=== PATIENT | female | born 1935 | race Caucasian/White ===

== ENCOUNTER 2019-12-30 13:05 | Inpatient (IN) | payer OTHER, BC ==
--- NOTE | 2019-12-30 14:10 | PDOC ---
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 Reecent CT showed resolved metastasis. Last Chemo 2 weeks prior. HPI: Mid lower back/sacral pain started 3 days ago. Came in today bc it became worse last night. Patient states usually able to walk with walker for past 3 days she cannot walk because she is in extreme pain. States this has never happened to her in the past where she could not walk. Dr. Sams her PCP recommended she come in today bc back pain is getting worse. D escribed as sharp. worse when she moves her legs or tries to get out of bed. Rates it 10/10. Doesn't radiate, localized to lower back/sacral area. Took 3 advil last night states it didn't help with the pain. Denies any recent falls or trauma. Denies urinary or bowel incontinence. Denies fevers, nausea, or vomiting. PCP: Dr. Jayashree Klein PSH: Stent, Patrial bowel resection Social Hx: Denies toxic habits Allergies: Sulfa Past History - Medical History Allergies/Adverse Reactions: Allergies Allergy/AdvReac Type Severity Reaction Status Date / Time Sulfa (Sulfonamide Allergy Verified 12/30/19 13:23 Antibiotics) Home Medications: Ambulatory Orders Aspirin 81 mg PO DAILY 12/30/19 Atorvastatin Ca [Lipitor] 40 mg PO HS 12/30/19 Calcium Carbonate 500 mg PO BID 12/30/19 Cholecalciferol (Vitamin D3) [Vitamin D3] 2,000 unit PO DAILY 12/30/19 Folic Acid 1 mg PO DAILY 12/30/19 Hydrochlorothiazide [Hctz -] 25 mg PO DAILY 12/30/19 Losartan Potassium 25 mg PO DAILY 12/30/19 Metoprolol Succinate 25 mg PO DAILY 12/30/19 Pantoprazole Sodium 40 mg PO DAILY 12/30/19 Cancer: Yes (breast,liver,intestines) Cardiac Disorders: Yes (a fib and watch man) COPD: No GI Disorders: Yes HTN: Yes Hypercholesterolemia: Yes - Surgical History Abdominal Surgery: Yes (intestinal, liver.) - Reproductive History Is Patient Now?: No - Psycho-Social/Smoking History Smoking History: Never smoked - Substance Abuse Hx (Audit-C & DAST Scrn) How often the patient has a drink containing alcohol: Never Score: In Men: 4 or > Positive; In Women: 3 or > Positive: 0 Screen Result (Pos requires Nsg. Audit-10AR): Negative In the last yr the pt used illegal drug/Rx for NonMed reason: No Score: Yes response is considered Positive: 0 Screen Result (Positive result requires Nsg. DAST-10): Negative Review of Systems - Review of Systems Able to Perform ROS?: Yes Comments:: CONSTITUTIONAL: Absent: fever, no chills, no fatigue EYES: Absent: visual changes ENT: Absent: ear pain, no sore throat CARDIOVASCULAR: Absent: chest pain, no palpitations RESPIRATORY: Absent: cough, no SOB GI: Absent: abdominal pain, no nausea, no vomiting, no constipation, no diarrhea GENITOURINARY: Present: Frequency Absent: dysuria, no hematuria MUSKULOSKELETAL: Present: Back pain Absent: no arthralgia, no myalgia SKIN: Absent: rash NEURO: Absent: headache *Physical Exam - Vital Signs Last Vital Signs Temp Pulse Resp BP Pulse Ox 98.2 F 100 H 16 120/81 99 12/30/19 13:05 12/30/19 13:05 12/30/19 13:05 12/30/19 13:05 12/30/19 13:05 - Physical Exam GENERAL: Well-appearing, well-nourished. Moderate distress. HEENT: Normocephalic, atraumatic. PERRL, EOM intact. CARDIOVASCULAR: Irregular rhythm and tachycardic rate. PULMONARY: No evidence of respiratory distress. Lungs clear to auscultation bilaterally. No wheezing, rales or rhonchi. ABDOMEN: Soft, non-distended, non-tender. SADDLE REGION: There is complete sensation in the saddle region without any saddle anesthesia RECTAL EXAM: There is normal and strong rectal tone EXTREMITIES: Normal ROM in all four extremities. No gross deformities. Both great toes have full strength and normal ROM on big toe extension. SKIN: Warm, dry. No rash NEUROLOGICAL: Alert, awake, appropriate. Cranial nerves 2-12 intact. No deficits to light touch in face, upper extremities and lower extremities. No motor deficits in the in face and upper extremities. There is bilateral 3/5 lower extremity weakness. There is significant lower back lumbar spinal tenderness. Normal speech. Toes are down-going bilaterally. PSYCHIATRIC: Cooperative. Good eye contact. Appropriate mood and affect. 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 Recent CT showed resolved metastasis. Last Chemo 2 weeks prior. HPI: Mid lower back/sacral pain started 3 days ago. Came in today bc it became worse last night. Patient states usually able to walk with walker for past 3 days she cannot walk because she is in extreme pain. States this has never happened to her in the past where she could not walk. Dr. Sams her PCP recommended she come in today bc back pain is getting worse. Described as sharp. worse when she moves her legs or tries to get out of bed. Rates it 10/10. Doesn't radiate, localized to lower back/sacral area. Took 3 advil last night states it didn't help with the pain. Vital Signs Temp Pulse Resp BP Pulse Ox 98.2 F 100 H 16 120/81 99 12/30/19 13:05 12/30/19 13:05 12/30/19 13:05 12/30/19 13:05 12/30/19 13:05 DDx IBNLT: Recurrent metastases, cauda equina vs conus medularis vs cord compression, electrolyte/metabolic disturbance, TAHIRA Plan: Labs, urine, CT, analgesia, re-assess EKG: Afib w RVR at ventricular rate of 119, narrow complexes with qrs 78, normal axis, no hypertrophy, no ST elevations or depressions, QTc 450 Labs: Mild hyperkalemia, TAHIRA - Patient states she has never before had kidney problems. Reports her kidney labs always being normal Urine: Greater than 10,000 bacteria - Treating UTi with ceftriaxone Lumbar CT: There is a broad-based posterior disc herniation at the L3-4 level producing a moderately severe central spinal canal stenosis with encroachment on the right and left lateral recesses, possibly compromising the L4 nerve roots. Dispo: Signing out patient to Dr. Brining to discuss case with Neuro-surgery, potential MRI, future ED care and final disposition Discharge - Discharge Information Problems reviewed: Yes Clinical Impression/Diagnosis: TAHIRA (acute kidney injury), Intractable pain, Central stenosis of spinal canal UTI (urinary tract infection) Qualifiers: Urinary tract infection type: acute cystitis Hematuria presence: without hematuria Qualified Code(s): N30.00 - Acute cystitis without hematuria Condition: Stable - Follow up/Referral - Patient Discharge Instructions - Post Discharge Activity
[2019-12-30] MEDS ORDERED: SODIUM CHLORIDE 1,000 ML IV STA (14:41)
[2019-12-30] MEDS ORDERED: morphine CARPU-JECT 4 MG/1 ML DISP.SYRIN IVPUSH ONE (15:10)
[2019-12-30 15:21] LABS: EOS % 2.5 % (0-4.5); HEMOGLOBIN 11.8 GM/dL (10.7-15.3); LYMPH % 9.1 % (8-40); MCH 33.1 pg (25.7-33.7); MCHC 32.8 g/dl (32.0-36.0); MEAN PLT VOLUME 9.1 fl (7.5-11.1); MONO % 8.9 % (3.8-10.2); NEUT % 78.5 % (42.8-82.8); PLATELET COUNT 322 K/MM3 (134-434); RBC 3.56 M/mm3 (3.60-5.2); RDW 16.1 % (11.6-15.6); WHITE BLOOD COUNT 9.9 K/mm3 (4.0-10.0)
[2019-12-30 15:27] LABS: INR 1.08 (0.83-1.09); PROTHROMBIN TIME (PATIENT) 12.7 SEC (9.7-13.0)
[2019-12-30] MEDS ORDERED: morphine SULFATE 4 MG/ML VIAL ONE (15:28)
[2019-12-30 15:53] LABS: ALBUMIN 3.3 g/dl (3.4-5.0); ALK PHOS 201 U/L (45-117); ANION GAP 7 MMOL/L (8-16); BILIRUBIN,TOTAL 0.9 mg/dL (0.2-1); BLOOD UREA NITROGEN 55.1 mg/dL (7-18); CALCIUM 9.3 mg/dL (8.5-10.1); CHLORIDE 112 mmol/L (98-107); CO2 25 mmol/L (21-32); CREATININE 1.8 mg/dL (0.55-1.3); GLUCOSE,RANDOM 98 mg/dL (74-106); POTASSIUM 5.6 mmol/L (3.5-5.1); SGOT/AST 18 U/L (15-37); SGPT/ALT 16 U/L (13-61); SODIUM 143 mmol/L (136-145); TOT PROT 6.9 g/dl (6.4-8.2)
--- NOTE | 2019-12-30 16:01 | PDOC ---
Documentation entered by Mckenna Caballero SCRIBE, acting as scribe for Nae Bo MD. Nae Bo MD: This documentation has been prepared by the Ada dunbar Brenda, SCRIBE, under my direction and personally reviewed by me in its entirety. I confirm that the documentation accurately reflects all work, treatment, procedures, and medical decision making performed by me. Attending Attestation - Resident Resident Name: Olaf Broussard - ED Attending Attestation I have performed the following: I have examined & evaluated the patient, The case was reviewed & discussed with the resident, I agree w/resident's findings & plan, Exceptions are as noted - HPI HPI: 12/30/19 14:35 The patient is an 84 year old female with a significnat PMH of colon carcinoma with metastasis to the liver, HTN and AFIB who presents to the ED for evaluation of progressively worsening mid lower back pain for 3 days. Patient was referred to the ED by her PCP Dr. Sams for worsening back pain. Patient notes that the pain is sharp, 10/10 and is aggravated by leg movement but does not radiate. States she took 3 Advil last night to no relief. Denies any recent falls or trauma. The patient denies chest pain, shortness of breath, headache and dizziness. Denies fever, chills, nausea, vomiting, diarrhea and constipation. Denies dysuria, frequency, urgency and hematuria. PCP: Dr. Jayashree Klein - Physicial Exam PE: 12/30/19 15:35 Agree with resident exam. patient is alert and appears mildly uncomfortable. 5/5 strength bilateral great toe extension. Intact bilateral lower extremity light touch sensation. - Medical Decision Making 12/30/19 15:57 PT presents to the ED with severe atraumatic back pain. History of malignancy, recent negative Ct abdomen pelvis. Denies neurologic symptoms, bowel or bladder complaints. Low suspcion for cord compression. Differential includes mets to the spine, compression fx, muscular pain. Will check labs and ct spine, admit to medicine for continued monitoring. Discharge - Discharge Information Problems reviewed: Yes Clinical Impression/Diagnosis: TAHIRA (acute kidney injury), Intractable pain, Central stenosis of spinal canal UTI (urinary tract infection) Qualifiers: Urinary tract infection type: acute cystitis Hematuria presence: without hematuria Qualified Code(s): N30.00 - Acute cystitis without hematuria Condition: Stable - Follow up/Referral - Patient Discharge Instructions - Post Discharge Activity
[2019-12-30 16:52] LABS: EPI CELLS 3 /uL (0-25.1); HYALINE CASTS 2 /uL (0-3.1); URINE APPEARANCE CLOUDY; URINE BILIRUBIN NEGATIVE (NEGATIVE); URINE COLOR YELLOW; URINE GLUCOSE (UA) NEGATIVE (NEGATIVE); URINE KETONE NEGATIVE (NEGATIVE); URINE LEUK ESTERASE 1+ (NEGATIVE); URINE NITRITE NEGATIVE (NEGATIVE); URINE PROTEIN TRACE (NEGATIVE); URINE UROBILINOGEN 0.2 mg/dL (0.2-1.0); URINE WBC 192 /uL (0-25.8)
[2019-12-30] MEDS ORDERED: CEFTRIAXONE 1,000 MG in DEXTROSE 5%-WATER - 50 ML IVPB ONE (17:51)
[2019-12-30] MEDS ORDERED: CEFTRIAXONE 1 GM/50 ML BAG ONE (17:53)
[2019-12-30 18:04] LABS: URINE RBC 77.4 /uL (0-23.9)
--- NOTE | 2019-12-30 19:46 | PDOC ---
*Physical Exam - Vital Signs Last Vital Signs Temp Pulse Resp BP Pulse Ox 98.2 F 100 H 16 120/81 99 12/30/19 13:05 12/30/19 13:05 12/30/19 13:05 12/30/19 13:05 12/30/19 13:05 ED Treatment Course - LABORATORY CBC & Chemistry Diagram: 01/03/20 07:15 01/03/20 07:15 - ADDITIONAL ORDERS Additional order review: Laboratory Results 12/30/19 12/30/19 12/30/19 16:47 15:12 15:12 PT with INR 12.70 INR 1.08 PTT (Actin FS) 28.0 Sodium Potassium Chloride Carbon Dioxide Anion Gap BUN Creatinine Est GFR (CKD-EPI)AfAm Est GFR (CKD-EPI)NonAf Random Glucose Calcium Total Bilirubin AST ALT Alkaline Phosphatase Troponin I C-Reactive Protein 3.9 H Total Protein Albumin Lipase 54 L Urine Color Yellow Urine Appearance Cloudy Urine pH 5.0 Ur Specific [place] 1.011 Urine Protein Trace Urine Glucose (UA) Negative Urine Ketones Negative Urine Blood Trace Urine Nitrite Negative Urine Bilirubin Negative Urine Urobilinogen 0.2 Ur Leukocyte Esterase 1+ H Urine WBC (Auto) 192 Urine RBC (Auto) 77.4 Urine Casts (Auto) 2 U Epithel Cells (Auto) 3 Urine Crystals (Auto) None Urine Bacteria (Auto) >10,000 12/30/19 15:12 PT with INR INR PTT (Actin FS) Sodium 143 Potassium 5.6 H Chloride 112 H Carbon Dioxide 25 Anion Gap 7 L BUN 55.1 H Creatinine 1.8 H Est GFR (CKD-EPI)AfAm 29.03 Est GFR (CKD-EPI)NonAf 25.04 Random Glucose 98 Calcium 9.3 Total Bilirubin 0.9 AST 18 ALT 16 Alkaline Phosphatase 201 H Troponin I < 0.02 C-Reactive Protein Total Protein 6.9 Albumin 3.3 L Lipase Urine Color Urine Appearance Urine pH Ur Specific [place] Urine Protein Urine Glucose (UA) Urine Ketones Urine Blood Urine Nitrite Urine Bilirubin Urine Urobilinogen Ur Leukocyte Esterase Urine WBC (Auto) Urine RBC (Auto) Urine Casts (Auto) U Epithel Cells (Auto) Urine Crystals (Auto) Urine Bacteria (Auto) 12/30/19 15:12 RBC 3.56 L MCV 101.0 H MCHC 32.8 RDW 16.1 H MPV 9.1 Neutrophils % 78.5 Lymphocytes % 9.1 Monocytes % 8.9 Eosinophils % 2.5 Basophils % 1.0 - RADIOLOGY Radiology Studies Ordered: Category Date Time Status LUMBAR SPINE MRI W&W/O CONTR [MRI] Stat MRI 12/30/19 19:38 Ordered - Medications Given in the ED: ED Medications Discontinued Medications Generic Name Dose Route Start Last Admin Trade Name Jesús PRN Reason Stop Dose Admin Sodium Chloride 1,000 mls @ 1,000 mls/hr 12/30/19 14:41 12/30/19 15:27 Normal Saline - IV 12/30/19 15:40 1,000 mls/hr ASDIR STA Administration Ceftriaxone Sodium 1,000 mg/ 50 mls @ 100 mls/hr 12/30/19 17:51 12/30/19 18:00 Dextrose IVPB 12/30/19 18:20 100 mls/hr ONCE ONE Administration Morphine Sulfate 4 mg 12/30/19 15:10 12/30/19 15:27 Morphine Injection - IVPUSH 12/30/19 15:11 4 mg ONCE ONE Administration Medical Decision Making - Medical Decision Making 12/30/19 19:41 Received sign out. 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 Recent CT showed resolved metastasis. Last Chemo 2 weeks prior. HPI: Mid lower back/sacral pain started 3 days ago. Came in today bc it became worse last night. Patient states usually able to walk with walker for past 3 days she cannot walk because she is in extreme pain. States this has never happened to her in the past where she could not walk. Dr. Sams her PCP recommended she come in today back pain is getting worse. Described as sharp. worse when she moves her legs or tries to get out of bed. Rates it 10/10. Doesn't radiate, localized to lower back/sacral area. Took 3 advil last night states it didn't help with the pain. EKG: Afib w RVR at ventricular rate of 119, narrow complexes with qrs 78, normal axis, no hypertrophy, no ST elevations or depressions, QTc 450 Labs: Mild hyperkalemia, TAHIRA - Patient states she has never before had kidney problems. Reports her kidney labs always being normal Urine: Greater than 10,000 bacteria - Treating UTI with ceftriaxone Lumbar CT: There is a broad-based posterior disc herniation at the L3-4 level producing a moderately severe central spinal canal stenosis with encroachment on the right and left lateral recesses, possibly compromising the L4 nerve roots. Upon reassessment, pt is not in pain when still but excruciating pain when tries to sit up. 4+/5 strength in RLE, 4/5 strength in LLE, weakness appears 2/2 pain. Able to lift RLE off bed for 3 seconds, unable to lift LLE off bed. SILT throughout. Spoke with NSGY Dr Caal - recommends steroids, muscle relaxant, gabapentin, pain management, and lumbar spine MRI w/and w/o contrast -Gabapentin -Flexeril -Decadron Admit med/surg Consulted [employer] representative. Received specifications to get MRI with pt's watchman. Passed on instructions verbally and in writing to prosthetic technician who expressed understanding. -MRI Discharge - Discharge Information Problems reviewed: Yes Clinical Impression/Diagnosis: TAHIRA (acute kidney injury), Intractable pain, Central stenosis of spinal canal UTI (urinary tract infection) Qualifiers: Urinary tract infection type: acute cystitis Hematuria presence: without hematuria Qualified Code(s): N30.00 - Acute cystitis without hematuria Condition: Stable - Admission Yes - Follow up/Referral - Patient Discharge Instructions - Post Discharge Activity
[2019-12-30] MEDS ORDERED: GABAPENTIN 100 MG CAPSULE PO ONE (19:49)
[2019-12-30] MEDS ORDERED: METHOCARBAMOL 500 MG TABLET PO ONE (19:50)
--- NOTE | 2019-12-30 20:18 | PN ---
Teaching Attending Note Name of Resident: Peace Pereyra ATTENDING PHYSICIAN STATEMENT I saw and evaluated the patient. I reviewed the resident's note and discussed the case with the resident. I agree with the resident's findings and plan as documented. SUBJECTIVE: Patient is an 84 year old woman with a PMH of CVA, HTN, Afib (Watchman device in place), Breast cancer (lumpectomy 12 years ago) and Colon carcinoma with metastasis to liver (on chemotherapy) who presents to the ER for evaluation of progressively worsening mid lower back pain for 3 days. Patient was referred to the ER by her PCP Dr. Sams for worsening back pain. Patient notes that the pain is sharp, 10/10 and is aggravated by leg movement but does not radiate. States she took 3 Advil last night with no relief. Denies any recent falls or trauma. The patient denies chest pain, shortness of breath, headache and dizziness. Denies fever, chills, nausea, vomiting, diarrhea and constipation. Denies dysuria, frequency, urgency and hematuria. Recent CT showed resolved liver metastasis. Last Chemo 2 weeks prior. Patient states usually able to walk with walker but for past 3 days she cannot walk because she is in extreme pain. States this has never happened to her in the past where she could not walk.Denies alcohol, tobacco or illicit drug use. No sick contacts or recent travels. Family history is CAD/heart disease in mother and brother; brain cancer in daughter. OBJECTIVE: Alert Vital Signs Period Temp Pulse Resp BP Sys/Eubanks Pulse Ox Last 24 Hr 98.2 F 100 16 120/81 99 HEENT: No Jaundice, eye redness or discharge, PERRLA, EOMI. Normocephalic, atraumatic. External ears are normal and hearing is grossly intact. No nasal discharge. Neck: Supple, nontender. No palpable adenopathy or thyromegaly. No JVD Chest: Good effort. Clear to auscultation and percussion. Heart: Irregularly irregular. No S3, rub or murmur Abdomen: Not distended, soft, nontender and no HSM. No rebound or guarding. Normal bowel sounds. Ext: Peripheral pulses intact. No leg edema. Lumbosacral area tenderness. Skin: Warm and dry. No petechiae, rash or ecchymosis. Neuro: Alert. Oriented x3. CN 2-12 grossly intact. Sensation grossly intact in all four extremities; bilateral LE weakness. gait not tested for safety reasons. Plantar reflexes are flexor. Psych: Appropriate mood and affect. Good insight. Abnormal Lab Results 12/30/19 12/30/19 12/30/19 15:12 15:12 15:12 RBC 3.56 L MCV 101.0 H RDW 16.1 H Potassium 5.6 H Chloride 112 H Anion Gap 7 L BUN 55.1 H Creatinine 1.8 H Alkaline Phosphatase 201 H C-Reactive Protein 3.9 H Albumin 3.3 L Lipase 54 L Ur Leukocyte Esterase 12/30/19 16:47 RBC MCV RDW Potassium Chloride Anion Gap BUN Creatinine Alkaline Phosphatase C-Reactive Protein Albumin Lipase Ur Leukocyte Esterase 1+ H Current Medications Generic Name Dose Route Start Last Admin Trade Name Freq PRN Reason Stop Dose Admin Cyclobenzaprine HCl 5 mg 12/31/19 00:35 Flexeril - PO TID PRN BACK PAIN Dexamethasone Sodium Phosphate 4 mg 12/31/19 03:00 12/31/19 02:45 Decadron Injection - IVPUSH 4 mg Q6H-IV TRACY Administration Gabapentin 100 mg 12/31/19 06:00 Neurontin - PO TID TRACY Heparin Sodium (Porcine) 5,000 unit 12/31/19 06:00 Heparin - SQ TID TRACY Sodium Chloride 1,000 mls @ 75 mls/hr 12/31/19 00:30 12/31/19 00:44 Normal Saline - IV 75 mls/hr ASDIR TRACY Administration Ceftriaxone Sodium 1 gm/ 50 mls @ 100 mls/hr 12/31/19 10:00 Dextrose IVPB DAILY TRACY Lidocaine 1 patch 12/31/19 10:00 Lidoderm Patch - TP DAILY [facility] Miscellaneous 1 each 12/31/19 22:00 Lidoderm Patch Removal MC DAILY@2200 TRACY Morphine Sulfate 1 mg 12/31/19 00:19 Morphine Sulfate IVPUSH Q4H PRN PAIN LEVEL 6-10 ASSESSMENT AND PLAN: 1. Intractable low back pain/UTI - Lumbar CT scan without contrast shows "There is a broad-based posterior disc herniation at the L3-4 level producing a moderately severe central spinal canal stenosis with encroachment on the right and left lateral recesses, possibly compromising the L4 nerve roots." Neurosurgery being consulted. Lumbar MRI is pending. ER staff prescribed Neurontin, Robaxin, Dexamethasone, IV Ceftriaxone and IV Morphine for the patient. Will continue Dexamethaxone q 6 hours, Neurontin, Robaxin, Warm soaks and Lidocaine patch. Consult PT. EKG shows Afib at 119/minute and QTc [address]-T wave changes. Initial troponin is negative. Will avoid drugs that may prolong QTc. Viral testing for COVID-19 ordered and patient placed on airborne, droplet and contact isolation. Hyperkalemia may be partly due to TAHIRA and/or type 4 RTA - should improve with IV hydration. Will continue comp rehensive care for all of patients comorbid conditions. 2. Hypoalbuminemia - Possibly due to combined effects of proteinuria, malnutrition and inflammation associated with comorbid conditions. Will ensure adequate dietary protein intake and also consult alumni secretary. 3. TAHIRA Cause unclear. May be partly due to NSAIDS. Will get kidney sonogram, hydrate gently, monitor urine output and consult Nephrology. Avoid nephrotoxic agents such as NSAIDS, aminoglycosides, contrast dyes and certain Alternative medicine products. 4. Hypertension Will restart suitable outpatient antihypertensive drugs when clinically appropriate. Subsequently, will revise regimen to ensure [id number] excellent BP control. Patient counseled on the injurious effects of uncontrolled hypertension. Nonpharmacologic measures to control hypertension like weight loss, salt restriction and exercise stressed. Importance of adherence to treatment regimen and attainment of normotension emphasized. 5. DVT prophylaxis - Heparin 5000u sq tid. 6. Advance directives - Full code.
[2019-12-30] MEDS ORDERED: DEXAMETHASONE SOD PHOSPHATE 10 MG/1 ML VIAL ONE (22:01)
[2019-12-30] MEDS ORDERED: GABAPENTIN 100 MG CAPSULE ONE (22:01)
[2019-12-30] MEDS ORDERED: METHOCARBAMOL 500 MG TABLET ONE (22:01)
[2019-12-30] MEDS: DEXAMETHASONE SOD PHOSPHATE 10 MG/1 ML VIAL IVPUSH ONE ×2 (22:10→22:25)
--- NOTE | 2019-12-30 23:03 | PN ---
Progress Note (short form) - Note Progress Note: NEUROSURGERY Spoke to ED team Chart reviewed CT LS spine and MRI LS spine reviewed H/o colon CA with mets to liver on chemo, Afib, Htn Increasing LBP and leg pain, difficulty walking; reported weakness which improved after pain meds; no reported B/b incontinence PE: AF, VS General- unremarkable CN- intact; Motor- L IP 4- other 4+-5' Sensation- intact LT; DTR- 1+; Back- tender L buttock, + SLR on L at 30 degrees INR 1.08, Cr 1.8, BUN 55.1, UA- 1+ leuk est, WBC 192, culture pending CT LS spine- No acute fx, multilevel spondylosis and facet hypertrophy; Moderate B L3-4 lateral recess stenosis MRI LS spine- no clear pathological lumbar fx; B L3-4 and L4-5 facet hypertrophy and moderate lateral recess stenosis bilaterally; moderate ligamentum hypertrophy; no significant central canal stenosis; ? edema R sacral ala and S2 Lumbar facet hypertrophy and lateral recess stenosis L3-4 > L4-5 but no central stenosis Metastatic colon CA to liver UTI, culture pending, on ceftriaxone Deheydration Neurosurgical intervention not recommended Medication trial including steroids, lidoderm patch, muscle relaxant and gabapentin PT Nuc bone scan to r/o osseous (sacral/ilium) met Pain management for injections if persistent pain Encourage po intake D/w attending Dr Gómez
[2019-12-30 23:17] VITALS: BMI 23.2
--- NOTE | 2019-12-31 00:08 | HP ---
CHIEF COMPLAINT: unbearable lower back pain PCP: Dr. 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 Patient said that on November 25 she went to her doctor to discuss the results of her CT scan, where she was told that her liver mets have resolved. A few days after, she was sitting in her chair and when she tried to get up she noticed sacral pain. Since then, the pain continued to get worse until she was unable to ambulate or even move without screaming. She then decided to call EMS and they brought her in. The pain does not radiate, and the patient does not recall any accident or awkward movements that could have brought on the pain. She denies any associated symptoms including NVD, SOB, CP, fever, chills. She did endorse urinary frequency since the pain started, because she has been unable to wipe herself properly. ER course was notable for: (1) lumbar spine MRI: insufficiency type fracture on R aspect of sacral ala, fracture of 2nd sacral segment, degenerative disc disease of lumbosacral spine, severe degenerative disc disease L3-L4 with herniation without nerve root compromise (2) K 5.6 (3) Cr 1.8 (4) UA: cloudy, 1+ leukocyte esterase, WBC 192, bacteria > [id number] Recent Travel: none recently PAST MEDICAL HISTORY: HTN afib with watchman stroke breast cancer colon cancer PAST SURGICAL HISTORY: appendectomy lumpectomy partial colectomy Social History: Smoking: denies Alcohol: denies Drugs: denies Home: lives in a elderly residency, carries out ADL independently, had Alzheimer and Family History: daughter recently due to a brain tumor father had heart disease brother has CAD Allergies Sulfa (Sulfonamide Antibiotics) Allergy (Verified 12/30/19 13:23) per patient: gets a rash from sulfa drugs HOME MEDICATIONS: Home Medications Medication Instructions Recorded Aspirin 81 mg PO DAILY 12/30/19 Atorvastatin Ca [Lipitor] 40 mg PO HS 12/30/19 Calcium Carbonate 500 mg PO BID 12/30/19 Cholecalciferol (Vitamin D3) 2,000 unit PO DAILY 12/30/19 [Vitamin D3] Folic Acid 1 mg PO DAILY 12/30/19 Hydrochlorothiazide [Hctz -] 25 mg PO DAILY 12/30/19 Losartan Potassium 25 mg PO DAILY 12/30/19 Metoprolol Succinate 25 mg PO DAILY 12/30/19 Pantoprazole Sodium 40 mg PO DAILY 12/30/19 REVIEW OF SYSTEMS As stated above PHYSICAL EXAMINATION Vital Signs - 24 hr 12/30/19 12/30/19 12/30/19 13:05 17:35 22:15 Temperature 98.2 F 98.1 F Pulse Rate 100 H Pulse Rate [ 76 76 Apical] Respiratory 16 18 20 Rate Blood Pressure 120/81 Blood Pressure 128/76 124/68 [Right Arm] O2 Sat by Pulse 99 99 98 Oximetry (%) 12/30/19 12/30/19 23:05 23:13 Temperature 98.5 F Pulse Rate 121 H Pulse Rate [ Apical] Respiratory 18 Rate Blood Pressure 134/81 Blood Pressure [Right Arm] O2 Sat by Pulse 98 95 Oximetry (%) GENERAL: Elderly female, thin body habitus, pleasant, in no acute distress but apparently in pain when she moves HEAD: Normal with no signs of trauma EYES: PERRL, direct and consensual pupillary reflex intact, extraocular movements intact LUNGS: CTAB, no wheezing appreciated HEART: S1 and S2 without murmur, mildly tachicardic on auscultation ABDOMEN: Soft, not distended, active bowel sounds, mild tenderness on deep palpation UPPER EXTREMITIES: peripheral pulses palpable, warm, mildly cachectic LOWER EXTREMITIES: dorsalis pedis pulses easily palpated, legs warm to touch, feet cold to touch, no peripheral edema NEUROLOGICAL: Cranial nerves II-XII grossly intact. Normal speech PSYCHIATRIC: Cooperative, very talkative, very tangential, forgetful, mildly confused. Good eye contact. SKIN: scattered solar lentigines on arms and hands, no other rashes or lesions noted Laboratory Results - last 24 hr 12/30/19 12/30/19 12/30/19 15:12 15:12 15:12 WBC 9.9 RBC 3.56 L Hgb 11.8 Hct 36.0 MCV 101.0 H MCH 33.1 MCHC 32.8 RDW 16.1 H Plt Count 322 MPV 9.1 Absolute Neuts (auto) 7.8 Neutrophils % 78.5 Lymphocytes % 9.1 Monocytes % 8.9 Eosinophils % 2.5 Basophils % 1.0 Nucleated RBC % 0 PT with INR INR PTT (Actin FS) Sodium 143 Potassium 5.6 H Chloride 112 H Carbon Dioxide 25 Anion Gap 7 L BUN 55.1 H Creatinine 1.8 H Est GFR (CKD-EPI)AfAm 29.03 Est GFR (CKD-EPI)NonAf 25.04 Random Glucose 98 Calcium 9.3 Total Bilirubin 0.9 AST 18 ALT 16 Alkaline Phosphatase 201 H Troponin I < 0.02 C-Reactive Protein 3.9 H Total Protein 6.9 Albumin 3.3 L Lipase 54 L Urine Color Urine Appearance Urine pH Ur Specific [place] Urine Protein Urine Glucose (UA) Urine Ketones Urine Blood Urine Nitrite Urine Bilirubin Urine Urobilinogen Ur Leukocyte Esterase Urine WBC (Auto) Urine RBC (Auto) Urine Casts (Auto) U Epithel Cells (Auto) Urine Crystals (Auto) Urine Bacteria (Auto) 12/30/19 12/30/19 15:12 16:47 WBC RBC Hgb Hct MCV MCH MCHC RDW Plt Count MPV Absolute Neuts (auto) Neutrophils % Lymphocytes % Monocytes % Eosinophils % Basophils % Nucleated RBC % PT with INR 12.70 INR 1.08 PTT (Actin FS) 28.0 Sodium Potassium Chloride Carbon Dioxide Anion Gap BUN Creatinine Est GFR (CKD-EPI)AfAm Est GFR (CKD-EPI)NonAf Random Glucose Calcium Total Bilirubin AST ALT Alkaline Phosphatase Troponin I C-Reactive Protein Total Protein Albumin Lipase Urine Color Yellow Urine Appearance Cloudy Urine pH 5.0 Ur Specific [place] 1.011 Urine Protein Trace Urine Glucose (UA) Negative Urine Ketones Negative Urine Blood Trace Urine Nitrite Negative Urine Bilirubin Negative Urine Urobilinogen 0.2 Ur Leukocyte Esterase 1+ H Urine WBC (Auto) 192 Urine RBC (Auto) 77.4 Urine Casts (Auto) 2 U Epithel Cells (Auto) 3 Urine Crystals (Auto) None Urine Bacteria (Auto) >10,000 ASSESSMENT/PLAN: 84yo F with PMHx of HTN afib with Watchman in place, stoke (5-6 years ago), breast cancer s/p lumpectomy (~12 years ago), and 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 Patient was admitted for treatment of lumbosacral spine fracture with disc herniation, hyperkalemia, and an TAHIRA. #Lumbosacral spine fractures with disc herniation - likely 2/2 to osteoporosis (vs neoplastic metastasis) - 4mg dexamethasone IV Q6h - for perispinal edema/inflammation - warm soaks - may start Gabapentin for neuropathic pain - lidocaine patch - PT consult - appreciate recs - neurosurgery consult - appreciate recs #TAHIRA in setting of UTI - unclear etiology, may be due to urinary retention - kidney sonogram - robaxin and ceftriaxone - monitor I/O - avoid NSAIDs and contrast - order urine culture #Hyperkalemia - likely related to TAHIRA - IV hydration with NS - continue monitoring #Afib with watchman in place - continue home metoprolol for rate control - continue ASA and lipitor for mortality benefit #HTN - contineu home HCTZ and Losartan #FEN - NS maintenance - replete lytes PRN - sodium diet with ensure pudding for nutritional supplementation #PPX - DVT: heparin SQ - GI: protonix Dispo: will continue monitoring patient in telemetry Visit type - Medication Review Med list reviewed for High Risk Meds patients 65 and older: No - Emergency Visit Emergency Visit: Yes ED Registration Date: 12/30/19 Care time: The patient presented to the Emergency Department on the above date and was hospitalized for further evaluation of their emergent condition. - New Patient This patient is new to me today: Yes Date on this admission: 01/02/20 - Critical Care Critical Care patient: No ATTENDING PHYSICIAN STATEMENT I saw and evaluated the patient. I reviewed the resident's note and discussed the case with the resident. I agree with the resident's findings and plan as documented. SUBJECTIVE: OBJECTIVE: ASSESSMENT AND PLAN:
[2019-12-31] MEDS ORDERED: SODIUM CHLORIDE 1,000 ML IV SCH (00:30)
[2019-12-31] MEDS: DEXAMETHASONE SOD PHOSPHATE 4 MG/1 ML VIAL IVPUSH SCH ×4 (02:45→21:21)
[2019-12-31] MEDS: HEPARIN NA (PORCINE) 5,000 UNITS/ML 1ML VIAL SQ SCH ×3 (06:12→21:21)
[2019-12-31] MEDS: GABAPENTIN 100 MG CAPSULE PO SCH ×3 (06:12→21:24)
--- NOTE | 2019-12-31 08:55 | EKG ---
Test Reason : Blood Pressure : / mmHG Vent. Rate : 119 BPM Atrial Rate : 064 BPM P-R Int : 000 ms QRS Dur : 078 ms QT Int : 320 ms P-R-T Axes : 000 -19 083 degrees QTc Int : 450 ms ATRIAL FIBRILLATION WITH RAPID VENTRICULAR RESPONSE ABNORMAL ECG NO PREVIOUS ECGS AVAILABLE Confirmed by Geetha Leija ([id number]) on 12/31/2019 8:55:15 AM Referred By: Confirmed By:Geetha Leija
--- NOTE | 2019-12-31 09:10 | PN ---
Progress Note, Physician Chief Complaint: pain slightly better than before. and no new numbness, no paresthesias. no fever, no chills, normal urinary and bowel control. History of Present Illness: Patient is an 84 year old woman with a PMH of CVA, HTN, Afib (Watchman device in place) not on A/C, Breast cancer (lumpectomy 12 years ago) and Colon carcinoma with metastasis to liver (on chemotherapy) who presents to the ER for evaluation of progressively worsening mid lower back pain for 3 days. Patient was referred to the ER by her PCP Dr. Sams for worsening back pain. Patient notes that the pain is sharp, 10/10 and is aggravated by leg movement but does not radiate. States she took 3 Advil last night with no relief. Denies any recent falls or trauma. - Current Medication List Current Medications: Active Medications Cyclobenzaprine HCl (Flexeril -) 5 mg PO TID PRN PRN Reason: BACK PAIN Dexamethasone Sodium Phosphate (Decadron Injection -) 4 mg IVPUSH Q6H-IV [facility] Last Admin: 12/31/19 02:45 Dose: 4 mg Documented by: Gabapentin (Neurontin -) 100 mg PO TID [facility] Last Admin: 12/31/19 06:12 Dose: 100 mg Documented by: Heparin Sodium (Porcine) (Heparin -) 5,000 unit SQ TID [facility] Last Admin: 12/31/19 06:12 Dose: 5,000 unit Documented by: Sodium Chloride (Normal Saline -) 1,000 mls @ 75 mls/hr IV ASDIR [facility] Last Admin: 12/31/19 00:44 Dose: 75 mls/hr Documented by: Ceftriaxone Sodium 1 gm/ (Dextrose) 50 mls @ 100 mls/hr IVPB DAILY TRACY Lidocaine (Lidoderm Patch -) 1 patch TP DAILY TRACY Miscellaneous (Lidoderm Patch Removal) 1 each MC DAILY@2200 TRACY Morphine Sulfate (Morphine Sulfate) 1 mg IVPUSH Q4H PRN PRN Reason: PAIN LEVEL 6-10 - Objective Vital Signs: Vital Signs Temperature 98.6 F 12/31/19 06:20 Pulse Rate 119 H 12/31/19 06:20 Respiratory Rate 18 12/31/19 06:20 Blood Pressure 113/62 12/31/19 06:20 O2 Sat by Pulse Oximetry (%) 95 12/31/19 06:20 Constitutional: Yes: Well Nourished, No Distress, Calm Eyes: Yes: Conjunctiva Clear, EOM Intact HENT: Yes: Atraumatic, Normocephalic Neck: Yes: Supple, Trachea Midline Cardiovascular: Yes: Regular Rate and Rhythm Respiratory: Yes: Regular, CTA Bilaterally Gastrointestinal: Yes: Normal Bowel Sounds, Soft Musculoskeletal: Yes: Back Pain, Other (SLR pos L side, and also R side,) Extremities: Yes: WNL Neurological: Yes: WNL, Other (movinng upper extremities, lower extremities limited exam bc of the severe low back pain, plantars downgoing, and reflexes intact and equal roland,.) Labs: CBC, BMP 12/30/19 15:12 12/30/19 15:12 INR, PTT INR 1.08 (0.83-1.09) 12/30/19 15:12 Impression/Plan Impression/Plan: ASSESSMENT AND PLAN: # Intractable low back pain/UTI - Lumbar CT scan without contrast shows broad-based posterior disc herniation at the L3-4 level producing a moderately severe central spinal canal stenosis with encroachment on the right and left lateral recesses, possibly compromising the L4 nerve roots." Neurosurgery being consulted. MRI report Edema in the bone marrow of the right aspect of the sacral ala compatible with insufficiency type of fracture Also noted fracture of the second sacral segment with no evidence of prevertebral hematoma or mass lesion. The fractures are most likely related to underlying osteoporosis with a recent trauma. ilene get Ortho consult, and PT conslt. and fu advised to start steroids muscle relaxant, and gabapentin. #rule out UTI will continue rocephin for now, and fu c&S, h/o afib with Vent rte in 120s. not on A/C,bc of the watchman device, had it done at the [facility], and had a lengthy discussion with the son, will give the metoprol with hold paramaters, starting with 1st dose now. QTc [address]-T wave changes. Initial troponin is negative. Will avoid drugs that may prolong QTc. Viral testing for COVID-19 ordered and patient placed on airborne, droplet and contact isolation. Hyperkalemia may be partly due to TAHIRA and/or type 4 RTA - should improve with IV hydration. will recheck TAHIRA no old labs avaialable, discssed with the son, not aware of the renal insufficiency, monitor renal functions, Cause unclear. May be partly due to NSAIDS. renal sono no hydronephrosis, and will hydrate gently, monitor urine output and consult Nephrology. Avoid nephrotoxic agents such as NSAIDS, aminoglycosides, contrast dyes and certain Alternative medicine products. # Hypertension for now start the metoprolol bid for rte control and bp control and monitor bp. #HLD continue home meds. # DVT prophylaxis - Heparin 5000u sq tid. Advance directives - Full code. Visit type - Emergency Visit Emergency Visit: No - New Patient This patient is new to me today: Yes Date on this admission: 12/31/19 - Critical Care Critical Care patient: No - Discharge Referral Referred to [facility] Med P.C.: No - Medication Review Med list reviewed for High Risk Meds patients 65 and older: Yes
[2019-12-31] MEDS ORDERED: cefTRIAXone SODIUM 1 GM VIAL ONE (10:14)
[2019-12-31] MEDS ORDERED: DEXTROSE 5%-WATER - 50 ML IVPB ONE (10:14)
[2019-12-31] MEDS: LIDOCAINE 5% TOPICAL PATCH TP SCH (10:17)
[2019-12-31] MEDS: CEFTRIAXONE 1 GM in DEXTROSE 5%-WATER - 50 ML IVPB SCH (10:18)
[2019-12-31] MEDS: metoPROLOL SUCCINATE 25 MG TAB.SR.24H (FP) PO SCH ×2 (13:14→21:24)
[2019-12-31] MEDS ORDERED: SODIUM POLYSTYRENE SULFONATE 15 GM/60 ML BOTTLE PO ONE (15:00)
[2019-12-31] MEDS ORDERED: DEXTROSE 5%-0.45% SALINE 1,000 ML IV SCH (16:30)
[2019-12-31] MEDS: ATORVASTATIN CA 10 MG TABLET (FP) PO SCH (21:24)
[2019-12-31] MEDS: LIDOCAINE PATCH REMOVAL MC SCH (21:24)
[2020-01-01] MEDS: DEXAMETHASONE SOD PHOSPHATE 4 MG/1 ML VIAL IVPUSH SCH ×4 (02:55→20:57)
[2020-01-01] MEDS: GABAPENTIN 100 MG CAPSULE PO SCH ×3 (05:32→21:01)
[2020-01-01] MEDS: HEPARIN NA (PORCINE) 5,000 UNITS/ML 1ML VIAL SQ SCH ×3 (05:32→21:01)
[2020-01-01 08:01] LABS: HEMATOCRIT 29.3 % (32.4-45.2); HEMOGLOBIN 9.6 GM/dL (10.7-15.3); MCH 32.7 pg (25.7-33.7); MCHC 32.8 g/dl (32.0-36.0); MEAN CELL VOLUME 99.7 fl (80-96); PLATELET COUNT 300 K/MM3 (134-434); RBC 2.94 M/mm3 (3.60-5.2); RDW 15.7 % (11.6-15.6); WHITE BLOOD COUNT 11.8 K/mm3 (4.0-10.0)
[2020-01-01 08:19] LABS: ALBUMIN 2.5 g/dl (3.4-5.0); BILIRUBIN,TOTAL 0.3 mg/dL (0.2-1); BLOOD UREA NITROGEN 55.3 mg/dL (7-18); CALCIUM 8.2 mg/dL (8.5-10.1); CREATININE 1.3 mg/dL (0.55-1.3); MAGNESIUM 2.4 mg/dL (1.8-2.4); PHOSPHOROUS 4.1 mg/dL (2.5-4.9); POTASSIUM 3.8 mmol/L (3.5-5.1); TOT PROT 5.8 g/dl (6.4-8.2)
[2020-01-01] MEDS ORDERED: cefTRIAXone SODIUM 1 GM VIAL ONE (08:48)
[2020-01-01] MEDS ORDERED: DEXTROSE 5%-WATER - 50 ML IVPB ONE (08:48)
[2020-01-01] MEDS: CEFTRIAXONE 1 GM in DEXTROSE 5%-WATER - 50 ML IVPB SCH (09:39)
--- NOTE | 2020-01-01 09:39 | PN ---
Physical Exam: SUBJECTIVE: Patient seen and examined. she reports lower ext weakness. OBJECTIVE: Patient is an 84 year old woman with a significant past medical history of CVA, HTN, Afib (Watchman device in place) not on A/C, breast cancer (lumpectomy 12 years ago) and colon carcinoma with metastasis to liver (on chemotherapy). She presents to the ED on 12/30/2019 for progressively worsening mid lower back pain for 3 days. Patient was referred to the ER by her PCP Dr. Sams for worsening back pain. She denies any falls or trauma. She is pending a bone scan today. Covid status: negative as per serology 12/30/2019 imaging: lumbar spine ct/thoracic spine ct: acute sacral fracture, mild t7 and t9 vertebral body compression fractures which appear chronic, diffuse osteoporosis. mri/lumbar spine: edema in the bone marrow of the right aspect of the sacral ala compatible with insufficiency type of fracture. fracture of the second sacral segment with no evidence of pre vertebral hematoma or mass lesion. severe degenerative disc disease l3-l4. Period Temp Pulse Resp BP Sys/[place]anks Pulse Ox Last 24 Hr 97.9 F-99.0 F 70-79 18-20 110-143/51-66 95-97 GENERAL: The patient is awake, alert, and fully oriented, in no acute distress. HEAD: Normal with no signs of trauma. EYES: PERRL, extraocular movements intact, sclera anicteric, conjunctiva clear. No ptosis. ENT: Ears normal, nares patent, oropharynx clear without exudates, moist mucous membranes. NECK: Trachea midline, full range of motion, supple. LUNGS: Breath sounds equal, clear to auscultation bilaterally HEART: Regular rate and rhythm ABDOMEN: Soft, nontender, nondistended, normoactive bowel sounds EXTREMITIES: no edema. NEUROLOGICAL: Normal speech, gait not observed. PSYCH: Normal mood, normal affect. SKIN: Warm, dry, normal turgor, no rashes or lesions noted Laboratory Results - last 24 hr 01/01/20 01/01/20 07:16 07:16 WBC 11.8 H RBC 2.94 L Hgb 9.6 L Hct 29.3 L D MCV 99.7 H MCH 32.7 MCHC 32.8 RDW 15.7 H Plt Count 300 MPV 9.0 Sodium 142 Potassium 3.8 Chloride 111 H Carbon Dioxide 25 Anion Gap 6 L BUN 55.3 H Creatinine 1.3 Est GFR (CKD-EPI)AfAm 43.02 Est GFR (CKD-EPI)NonAf 37.12 Random Glucose 136 H Calcium 8.2 L Phosphorus 4.1 Magnesium 2.4 Total Bilirubin 0.3 AST 18 ALT 15 Alkaline Phosphatase 152 H Total Protein 5.8 L Albumin 2.5 L Active Medications Generic Name Dose Route Start Last Admin Trade Name Freq PRN Reason Stop Dose Admin Atorvastatin Calcium 10 mg 12/31/19 22:00 12/31/19 21:24 Lipitor - PO 10 mg HS TRACY Administration Cyclobenzaprine HCl 5 mg 12/31/19 00:35 Flexeril - PO TID PRN BACK PAIN Dexamethasone Sodium Phosphate 4 mg 12/31/19 03:00 01/01/20 02:55 Decadron Injection - IVPUSH 4 mg Q6H-IV TRACY Administration Gabapentin 100 mg 12/31/19 06:00 01/01/20 05:32 Neurontin - PO 100 mg TID TRACY Administration Heparin Sodium (Porcine) 5,000 unit 12/31/19 06:00 01/01/20 05:32 Heparin - SQ 5,000 unit TID TRACY Administration Ceftriaxone Sodium 1 gm/ 50 mls @ 100 mls/hr 12/31/19 10:00 12/31/19 10:18 Dextrose IVPB 100 mls/hr DAILY TRACY Administration Dextrose/Sodium Chloride 1,000 mls @ 60 mls/hr 12/31/19 16:30 12/31/19 16:32 D5-1/2ns - IV 60 mls/hr ASDIR TRACY Administration Lidocaine 1 patch 12/31/19 10:00 12/31/19 10:17 Lidoderm Patch - TP 1 patch DAILY TRACY Administration Metoprolol Succinate 25 mg 12/31/19 11:45 12/31/19 21:24 Toprol Xl - PO 25 mg BID TRACY Administration Miscellaneous 1 each 12/31/19 22:00 12/31/19 21:24 Lidoderm Patch Removal MC Not Given DAILY@2200 TRACY Morphine Sulfate 1 mg 12/31/19 00:19 Morphine Sulfate IVPUSH Q4H PRN PAIN LEVEL 6-10 ASSESSMENT/PLAN: Problem List - Problems (1) Intractable back pain Assessment/Plan: Lumbar CT scan shows broad-based posterior disc herniation at the L3-4 level producing a moderately severe central spinal canal stenosis with encroachment on the right and left lateral recesses, possibly compromising the L4 nerve roots. Patient seen by neuro surgery, no surgical interventions recommended. Treat symptoms steriods, and pain management. Further MRI report shows edema in the bone marrow of the right aspect of the sacral ala compatible with insufficiency type of fracture also noted fracture of the second sacral segment with no evidence of prevertebral hematoma or mass lesion. The fractures are most likely related to underlying osteoporosis with a recent trauma. Ortho has been consulted PT to evaluate mobility status On gapapentin, muscle relaxiers Code(s): M54.9 - DORSALGIA, UNSPECIFIED (2) Atrial fibrillation Assessment/Plan: patient with a watchman device done at [facility]. On beta blockers for rate control. Code(s): I48.91 - UNSPECIFIED ATRIAL FIBRILLATION (3) Hypertension Assessment/Plan: stable on metoprolol Code(s): I10 - ESSENTIAL (PRIMARY) HYPERTENSION (4) Hyperlipidemia Assessment/Plan: on Lipitor Code(s): E78.5 - HYPERLIPIDEMIA, UNSPECIFIED (5) TAHIRA (acute kidney injury) Assessment/Plan: unknown baseline. Creatinine has improved with IVF Renal ultrasound w/o hydronephrosis, and currently on gentle hydration with improvement of kidney function Nephrology consulted and following Code(s): N17.9 - ACUTE KIDNEY FAILURE, UNSPECIFIED (6) Central stenosis of spinal canal Code(s): M48.00 - SPINAL STENOSIS, SITE UNSPECIFIED (7) UTI (urinary tract infection) Assessment/Plan: urine culture with lactose fermenting negative bacilli, group d. on ceftriaxone Code(s): N39.0 - URINARY TRACT INFECTION, SITE NOT SPECIFIED Qualifiers: Urinary tract infection type: acute cystitis Hematuria presence: without hematuria Qualified Code(s): N30.00 - Acute cystitis without hematuria (8) DVT prophylaxis Assessment/Plan: on heparin tid Code(s): Z29.9 - ENCOUNTER FOR PROPHYLACTIC MEASURES, UNSPECIFIED Visit type - Emergency Visit Emergency Visit: Yes ED Registration Date: 12/30/19 Care time: The patient presented to the Emergency Department on the above date and was hospitalized for further evaluation of their emergent condition. - New Patient This patient is new to me today: Yes Date on this admission: 01/01/20 - Critical Care Critical Care patient: No - Discharge Referral Referred to [facility] Med P.C.: No - Medication Review Med list reviewed for High Risk Meds patients 65 and older: Yes
--- NOTE | 2020-01-01 10:09 | CONSULT ---
Consult Consult Specialty:: Nephrology Reason for Consultation:: TAHIRA - History of Present Illness Chief Complaint: back pain History of Present Illness: Pt is an 84 year old female with pmhx of cva, htn, a-fib, breast cancer, colon cancer who presents with back pain. SHe was found to be in renal failure and found to be hyperkalemic. I was called to evaluate her. She denies shortness of breath or chest pain. She denies history of CKD. She did respond to fluids. She denies palpitations. She is awake and alert. She denies history of NSAID use. She still has back pain. She was also found to have a UTI. - History Source History Provided By: Patient - Past Medical History Cardio/Vascular: Yes: HTN ...: No Heme/Onc: Yes: Other (breast cancer) - Smoking History Smoking history: Never smoked Home Medications - Allergies Allergies/Adverse Reactions: Allergies Allergy/AdvReac Type Severity Reaction Status Date / Time Sulfa (Sulfonamide Allergy Verified 12/30/19 13:23 Antibiotics) - Home Medications Home Medications: Ambulatory Orders Aspirin 81 mg PO DAILY 12/30/19 Atorvastatin Ca [Lipitor] 40 mg PO HS 12/30/19 Calcium Carbonate 500 mg PO BID 12/30/19 Cholecalciferol (Vitamin D3) [Vitamin D3] 2,000 unit PO DAILY 12/30/19 Folic Acid 1 mg PO DAILY 12/30/19 Hydrochlorothiazide [Hctz -] 25 mg PO DAILY 12/30/19 Losartan Potassium 25 mg PO DAILY 12/30/19 Metoprolol Succinate 25 mg PO DAILY 12/30/19 Pantoprazole Sodium 40 mg PO DAILY 12/30/19 Family Medical History Family History: Denies Review of Systems - Review of Systems Constitutional: reports: Malaise Eyes: reports: No Symptoms HENT: reports: No Symptoms Neck: reports: No Symptoms Cardiovascular: reports: No Symptoms Respiratory: reports: No Symptoms Gastrointestinal: reports: No Symptoms Genitourinary: reports: No Symptoms Musculoskeletal: reports: Back Pain Integumentary: reports: No Symptoms Neurological: reports: No Symptoms Endocrine: reports: No Symptoms Hematology/Lymphatic: reports: No Symptoms Psychiatric: reports: No Symptoms Physical Exam Vital Signs: Vital Signs Temperature 98.5 F 01/01/20 04:00 Pulse Rate 79 01/01/20 04:00 Respiratory Rate 18 01/01/20 04:00 Blood Pressure 143/66 01/01/20 04:00 O2 Sat by Pulse Oximetry (%) 95 01/01/20 04:00 Constitutional: Yes: Calm Eyes: Yes: Conjunctiva Clear HENT: Yes: Atraumatic Neck: Yes: Supple Respiratory: Yes: CTA Bilaterally Gastrointestinal: Yes: Soft Renal/: Yes: WNL Musculoskeletal: Yes: WNL Edema: No Neurological: Yes: Oriented Psychiatric: Yes: Oriented Labs: CBC, BMP 01/01/20 07:16 01/01/20 07:16 Imaging - Results Ultrasound: Report Reviewed Problem List - Problems (1) TAHIRA (acute kidney injury) Code(s): N17.9 - ACUTE KIDNEY FAILURE, UNSPECIFIED Assessment/Plan Current Medications Generic Name Dose Route Start Last Admin Trade Name Freq PRN Reason Stop Dose Admin Atorvastatin Calcium 10 mg 12/31/19 22:00 12/31/19 21:24 Lipitor - PO 10 mg HS TRACY Administration Cyclobenzaprine HCl 5 mg 12/31/19 00:35 Flexeril - PO TID PRN BACK PAIN Dexamethasone Sodium Phosphate 4 mg 12/31/19 03:00 01/01/20 09:39 Decadron Injection - IVPUSH 4 mg Q6H-IV TRACY Administration Gabapentin 100 mg 12/31/19 06:00 01/01/20 05:32 Neurontin - PO 100 mg TID TRACY Administration Heparin Sodium (Porcine) 5,000 unit 12/31/19 06:00 01/01/20 05:32 Heparin - SQ 5,000 unit TID TRACY Administration Ceftriaxone Sodium 1 gm/ 50 mls @ 100 mls/hr 12/31/19 10:00 01/01/20 09:39 Dextrose IVPB 100 mls/hr DAILY TRACY Administration Dextrose/Sodium Chloride 1,000 mls @ 60 mls/hr 12/31/19 16:30 12/31/19 16:32 D5-1/2ns - IV 60 mls/hr ASDIR TRACY Administration Lidocaine 1 patch 12/31/19 10:00 12/31/19 10:17 Lidoderm Patch - TP 1 patch DAILY TRACY Administration Metoprolol Succinate 25 mg 12/31/19 11:45 12/31/19 21:24 Toprol Xl - PO 25 mg BID TRACY Administration Miscellaneous 1 each 12/31/19 22:00 12/31/19 21:24 Lidoderm Patch Removal MC Not Given DAILY@2200 TRACY Morphine Sulfate 1 mg 12/31/19 00:19 Morphine Sulfate IVPUSH Q4H PRN PAIN LEVEL 6-10 Impression 1. TAHIRA 2. hyperkalemia 3. back pain 4. uti 5. hx breast cancer 6. hld 7. colon cancer 8. renal cysts Plan - potassium improved - renal function improving - change fluids to 1/2 ns - cont abx - follow cultures - pt tolerating diet
[2020-01-01] MEDS: LIDOCAINE 5% TOPICAL PATCH TP SCH (10:46)
[2020-01-01] MEDS: metoPROLOL SUCCINATE 25 MG TAB.SR.24H (FP) PO SCH ×2 (10:46→21:01)
--- NOTE | 2020-01-01 10:50 | PN ---
Progress Note (short form) - Note Progress Note: NEUROSURGERY H/o colon CA with mets to liver on chemo, Afib, Htn Increasing LBP to L hip/buttock, denies leg pain, reported weakness which improved after steroids; no reported B/B incontinence PE: AF, VS General- unremarkable CN- intact; Motor- L IP 4- and Quad 4+; others 4+-5; Sensation- intact LT; DTR- 1+; Back- tender L buttock, + SLR on L at 40 degrees Urine culture NLF GNB; Cr trending down 1.3, BUN still 55; Covid 19-pending still CT LS spine- No acute fx, multilevel spondylosis and facet hypertrophy; Moderate B L3-4 lateral recess stenosis MRI LS spine- no clear pathological lumbar fx; B L3-4 and L4-5 facet hypertrophy and moderate lateral recess stenosis bilaterally; moderate ligamentum hypertrophy; no significant central canal stenosis; ? edema R sacral ala and S2 Lumbar facet hypertrophy and lateral recess stenosis L3-4 > L4-5 but no central stenosis Sacral edema (R ala) but pain is mostly L sided? Metastatic colon CA to liver UTI, culture pending, on ceftriaxone Dehydration Neurosurgical intervention not recommended Medication trial including steroids, lidoderm patch, muscle relaxant and gabapentin PT Undergoing Nuc bone scan now to r/o osseous (sacral/ilium) met Pain management for injections if persistent pain D/w attending Dr Gómez
--- NOTE | 2020-01-01 15:42 | CON.ORTH ---
Consult Reason for Consultation:: LBP - Past Medical History Cardio/Vascular: Yes: HTN ...: No - Smoking History Smoking history: Never smoked Home Medications - Allergies Allergies/Adverse Reactions: Allergies Allergy/AdvReac Type Severity Reaction Status Date / Time Sulfa (Sulfonamide Allergy Verified 12/30/19 13:23 Antibiotics) - Home Medications Home Medications: Ambulatory Orders Aspirin 81 mg PO DAILY 12/30/19 Atorvastatin Ca [Lipitor] 40 mg PO HS 12/30/19 Calcium Carbonate 500 mg PO BID 12/30/19 Cholecalciferol (Vitamin D3) [Vitamin D3] 2,000 unit PO DAILY 12/30/19 Folic Acid 1 mg PO DAILY 12/30/19 Hydrochlorothiazide [Hctz -] 25 mg PO DAILY 12/30/19 Losartan Potassium 25 mg PO DAILY 12/30/19 Metoprolol Succinate 25 mg PO DAILY 12/30/19 Pantoprazole Sodium 40 mg PO DAILY 12/30/19 Physical Exam for Ortho Vital Signs: Vital Signs Temperature 98.7 F 01/01/20 10:42 Pulse Rate 59 L 01/01/20 10:42 Respiratory Rate 18 01/01/20 10:42 Blood Pressure 139/64 01/01/20 10:42 O2 Sat by Pulse Oximetry (%) 98 01/01/20 10:42 Labs: CBC, BMP 01/01/20 07:16 01/01/20 07:16 INR, PTT INR 1.08 (0.83-1.09) 12/30/19 15:12 Other Findings/Remarks: LS spine- + ttp ,decr rom in all direction, + slr, normal sensation, nvi Imaging - Results Cat Scan: Report Reviewed, Image Reviewed Assessment/Plan 84 year old woman with a PMH of CVA, HTN, Afib (Watchman device in place), Breast cancer (lumpectomy 12 years ago) and Colon carcinoma with metastasis to liver (on chemotherapy) who presents to the ER for evaluation of progressively worsening mid lower back pain for 3 days. Patient was referred to the ER by her PCP Dr. Sams for worsening back pain. Patient notes that the pain is sharp, 10/10 and is aggravated by leg movement but does not radiate. States she took 3 Advil last night with no relief. Denies any recent falls or trauma. Pt is being followed by Dr. Caal. a/p- multi level spondylosis, foraminal and central canal stenosis, edema in sacral ala Bone scan pending PT, wbat pain management consult for possible injections pain control d/w Dr. Lundberg
[2020-01-01] MEDS: SODIUM CHLORIDE 0.45% 1,000 ML IV SCH (16:08)
--- NOTE | 2020-01-01 19:13 | CONS ---
DATE OF CONSULTATION: 12/30/2019 CHIEF COMPLAINT: Increasing lower back, predominantly left-sided lower back pain. HISTORY OF PRESENT ILLNESS: The patient is an 84-year-old right-hand female with history of metastatic colon and CA to the liver, hypertension, atrial fibrillation not on anticoagulation, and hypercholesterolemia, who was admitted with 5-day history of increasing left-sided lower back pain greater than right. She had been home- bound for the last several months because of COVID-19 for her own precautions. She did go to see her doctor at [facility] about 5 days prior to admission. She had history of colon cancer and was under the care at [facility], for which she had received chemotherapy and adjuvant chemotherapy as well. She was just recently told there was no residual liver metastases on examination. As soon as she went home, she started experiencing increasing lower back pain left greater than right, the pain also radiating down to her hips and buttocks but not down to her left leg or thigh. She has subjective weakness and was able to ambulate. She denied bowel or bladder incontinence. She did experience urinary frequency. She has no fever, chill, cough, or other signs of infection. PAST MEDICAL HISTORY: Significant for hypertension, atrial fibrillation, colon CA. CURRENT MEDICATIONS: Include metoprolol and Lipitor. ALLERGIES: SULFA. SOCIAL HISTORY: She does not smoke and only drinks alcohol socially. She lives at home. She is retired. REVIEW OF SYSTEMS: Otherwise negative for other major constitutional, head/neck, cardiovascular, pulmonary, gastrointestinal, genitourinary, endocrinologic, neurologic, or psychological problems. She has no recent weight loss, and she has good appetite. PHYSICAL EXAMINATION: Vital signs: Temperature is 98.4, blood pressure 114/66 with pulse rate 110; heart rate did increase to the 70s. O2 saturation is 98% on room air. HEENT: Normocephalic, atraumatic, anicteric. Neck: Supple with no lymphadenopathy, no carotid bruit. Coronary: Regular rhythm without a murmur. Lungs: Clear to auscultation bilaterally. Abdomen: Benign. Extremities: No signs of DVT. Distal pulses are 1+. Neurologic: The patient is awake, alert, oriented x3. Her speech is fluent and her memory is intact. Cranial nerves examination intact 2-12. Motor examination shows 5/5 strength in bilateral upper extremities and right lower extremity. Left ileus psoas 4-, left quadriceps 4 which is pain limited. Sensory examination is intact to light touch. Deep tendon reflexes are 1+ throughout. There is no pathological long tract sine. Examination of her back shows some focal tenderness and left SI joint region. She also has positive straight leg raise on the left side 30 degrees. Gait is not tested for safety reasons. Cerebellar examination demonstrates intact finger to nose examination. LABORATORY EXAMINATION: White blood cell count 8.9, hemoglobin 11.8, platelet count is 322,000. INR is 1.08 and PTT is 28, serum sodium is 143, and potassium is 5.6. BUN and creatinine are 55.1 and 1.8, respectively. C-reactive protein is 3.9. LFTs shows slight elevation of alkaline phosphatase to 201, albumin is 3.3, troponin is less than 0.02. Urinalysis shows 1+ leukocyte esterase with 192 WBCs and 774 RBCs. There is greater than 10,000 bacteria. COVID-19 serology is pending. Urine culture was pending. CT scan of the lumbar spine demonstrated multilevel spondylosis and facet hypertrophy. There is disk bulge at L3-L4 which in combination with hypertrophy results in moderate lateral recess stenosis bilaterally. There is also mild to moderate lateral recess stenosis at L4-L5 bilaterally. There is no fracture or dislocation. MRI of the lumbar spine demonstrated right sacral region edema with S2 of the edema as well. There is degenerative disk disease at L3-L4 with broad based disk bulge which results in moderate lateral recess stenosis, but there is no nerve root impingement. There is also L3-L4 lateral recess stenosis secondary to hypertrophy. IMPRESSION: 1. Colon carcinoma with liver metastases. 2. Hypertension and atrial fibrillation. 3. L3-L4 and L4-L5 facet hypertrophy with lateral recess stenosis without significant neurological element impingement. 4. Sacral edema, rule out fracture versus metastases. RECOMMENDATION: The patient presents with 5-day history of acute increasing lower back pain, left greater than right. She has some subjective weakness, and her examination is limited by pain. She has edema in the sacral ala as well as S2 region on MRI. There is no fracture noted on CT scan of the lumbar spine. This might be osteoporosis related, even though she does not look particularly osteopenic on CT scan imaging. Because of the history of colon CA, nuclear bone scan is recommended to rule out metastatic disease. It is unknown to me whether she had a PET scan previously. She was recommended, for her back and leg pain, to be treated with a course of IV steroids, gabapentin, and muscle relaxant as well as Lidoderm patches. She was somewhat reluctant to take medications and even use the Lidoderm patches. The potential side effects and potential benefits of the medication were described to patient. All questions were answered at the bedside. The above was also discussed with the patient's attending physician, attending hospitalist Dr. Gómez, requesting physician is Dr. Oanh Tabor. At this point, the patient has no neurological condition which requires neurosurgical intervention. The patient understands the above as well. JUSTUS BOWLES M.D. [id number] MTDD
[2020-01-01] MEDS: MORPHINE SULFATE 2 MG/ML VIAL IVPUSH PRN (20:57)
[2020-01-01] MEDS: ATORVASTATIN CA 10 MG TABLET (FP) PO SCH (21:01)
[2020-01-01] MEDS: LIDOCAINE PATCH REMOVAL MC SCH (21:01)
[2020-01-02] MEDS: DEXAMETHASONE SOD PHOSPHATE 4 MG/1 ML VIAL IVPUSH SCH ×3 (02:12→14:33)
[2020-01-02] MEDS: HEPARIN NA (PORCINE) 5,000 UNITS/ML 1ML VIAL SQ SCH ×3 (05:49→21:29)
[2020-01-02] MEDS: GABAPENTIN 100 MG CAPSULE PO SCH ×3 (05:49→21:30)
[2020-01-02] MEDS: MORPHINE SULFATE 2 MG/ML VIAL IVPUSH PRN (05:49)
[2020-01-02 08:17] LABS: BASO % 0.1 % (0-2.0); HEMOGLOBIN 10.1 GM/dL (10.7-15.3); LYMPH % 3.3 % (8-40); MCH 33.2 pg (25.7-33.7); MCHC 33.6 g/dl (32.0-36.0); MEAN CELL VOLUME 98.7 fl (80-96); MEAN PLT VOLUME 9.1 fl (7.5-11.1); MONO % 2.6 % (3.8-10.2); PLATELET COUNT 320 K/MM3 (134-434); RBC 3.04 M/mm3 (3.60-5.2); RDW 15.9 % (11.6-15.6); WHITE BLOOD COUNT 10.2 K/mm3 (4.0-10.0)
--- NOTE | 2020-01-02 08:19 | PN ---
Progress Note (short form) - Note Progress Note: NEUROSURGERY H/o colon CA with mets to liver on chemo, Afib, Htn Increasing LBP to L hip/buttock, denies leg pain, reported weakness which improved after steroids; no reported B/B incontinence PE: Tmac 98.7, AF, VS General- unremarkable CN- intact; Motor- L IP 4- and Quad 4+; others 4+-5; Sensation- intact LT; DTR- 1+; Back- tender L buttock, + SLR on L at 35 degrees Urine culture NLF GNB/group D strep vs enterococcus; Cr trending down 1.3, BUN still 55; Covid 19-negative CT LS spine- No acute fx, multilevel spondylosis and facet hypertrophy; Moderate B L3-4 lateral recess stenosis MRI LS spine- no clear pathological lumbar fx; B L3-4 and L4-5 facet hypertrophy and moderate lateral recess stenosis bilaterally; no significant central canal stenosis; edema R sacral ala Bone scan- R sacral alar uptake c/w fx Lumbar facet hypertrophy and lateral recess stenosis L3-4 > L4-5 but no central stenosis Sacral edema (R ala) - osteoporotic fx but non-displaced Metastatic colon CA to liver UTI, culture pending, on ceftriaxone Dehydration Neurosurgical intervention not recommended Medication trial including steroids, lidoderm patch, muscle relaxant and gabapentin PT Pain management for injections if persistent pain Switch to po decadron then taper over 1 week
[2020-01-02 08:40] LABS: ALBUMIN 2.4 g/dl (3.4-5.0); BILIRUBIN,TOTAL 0.5 mg/dL (0.2-1); BLOOD UREA NITROGEN 48.4 mg/dL (7-18); CALCIUM 8.3 mg/dL (8.5-10.1); MAGNESIUM 2.3 mg/dL (1.8-2.4); TOT PROT 5.4 g/dl (6.4-8.2)
--- NOTE | 2020-01-02 08:59 | PN ---
Progress Note, Physician Chief Complaint: Complaint of weakness History of Present Illness: 84 year old woman with a significant past medical history of CVA, HTN, Afib (Watchman device in place) not on A/C, breast cancer (lumpectomy 12 years ago) and colon carcinoma with hepatic mets completed chemotherapy, follow-up with oncologist at present no chemotherapy or radiation therapy is planned oncologist follow-up thyroid as an outpatient admitted on December 30, 2019 with 3 days history of worsening back pain underwent CT scan and MRI that shows no compression, evaluated by neurosurgery recommended pain control and rehabilitation, today patient was able to participate in PT awaiting subacute rehabilitation placement at [facility]. - Current Medication List Current Medications: Active Medications Atorvastatin Calcium (Lipitor -) 10 mg PO HS [facility] Last Admin: 01/01/20 21:01 Dose: 10 mg Documented by: Cyclobenzaprine HCl (Flexeril -) 5 mg PO TID PRN PRN Reason: BACK PAIN Dexamethasone Sodium Phosphate (Decadron Injection -) 4 mg IVPUSH Q6H-IV [facility] Last Admin: 01/02/20 08:27 Dose: 4 mg Documented by: Gabapentin (Neurontin -) 100 mg PO TID [facility] Last Admin: 01/02/20 05:49 Dose: 100 mg Documented by: Heparin Sodium (Porcine) (Heparin -) 5,000 unit SQ TID [facility] Last Admin: 01/02/20 05:49 Dose: 5,000 unit Documented by: Ceftriaxone Sodium 1 gm/ (Dextrose) 50 mls @ 100 mls/hr IVPB DAILY [facility] Last Admin: 01/01/20 09:39 Dose: 100 mls/hr Documented by: Sodium Chloride (1/2 Normal Saline) 1,000 mls @ 42 mls/hr IV ASDIR [facility] Last Admin: 01/01/20 16:08 Dose: 42 mls/hr Documented by: Lidocaine (Lidoderm Patch -) 1 patch TP DAILY [facility] Last Admin: 01/01/20 10:46 Dose: 1 patch Documented by: Metoprolol Succinate (Toprol Xl -) 25 mg PO BID [facility] Last Admin: 01/01/20 21:01 Dose: 25 mg Documented by: Miscellaneous (Lidoderm Patch Removal) 1 each MC DAILY@2200 [facility] Last Admin: 01/01/20 21:01 Dose: Not Given Documented by: Morphine Sulfate (Morphine Sulfate) 1 mg IVPUSH Q4H PRN PRN Reason: PAIN LEVEL 6-10 Last Admin: 01/02/20 05:49 Dose: 1 mg Documented by: - Objective Vital Signs: Vital Signs Temperature 98.2 F 01/02/20 06:18 Pulse Rate 78 01/02/20 06:18 Respiratory Rate 20 01/02/20 06:18 Blood Pressure 114/67 01/02/20 06:18 O2 Sat by Pulse Oximetry (%) 92 L 01/02/20 06:18 General: Elderly f, comfortable, not in distress HEENT mucous membranes moist, no anemia, no jaundice, PERRLA, no nystagmus Neck: No JVD, supple, no bruit, thyroid palpably normal, normal carotid pulsations. Chest: Nontender, clear to auscultation bilaterally CVS: S1-S2 irregular no murmur/gallop/rub Abdomen: Nondistended, soft, bowel sounds present. Extremities: No edema., No Calf tenderness, pulses present BEEF LUGGER: AO X3 , no gross motor sensory deficit Labs: CBC, BMP 01/02/20 07:28 01/02/20 07:28 INR, PTT INR 1.08 (0.83-1.09) 12/30/19 15:12 Urine culture; Microbiology 12/30/19 16:44 Urine - Urine Clean Catch Urine Culture - Final Klebsiella Pneumoniae Group D Strep Or Entero Coccus Problem List - Problems (1) Intractable back pain Assessment/Plan: Improving on current management evaluated by orthopedics and neurosurgery CT LS spine- No acute fx, multilevel spondylosis and facet hypertrophy; Moderate B L3- 4 lateral recess stenosis, MRI LS spine- no clear pathological lumbar fx; B L3-4 and L4-5 facet hypertrophy and moderate lateral recess stenosis bilaterally; no significant central canal stenosis; edema R sacral ala, Bone scan- R sacral alar uptake c/w fx, neurosurgery recommended no intervention switch to p.o. dexamethasone and taper over 1 week, PT evaluation for subacute rehab placement, pain control Code(s): M54.9 - DORSALGIA, UNSPECIFIED (2) Central stenosis of spinal canal Assessment/Plan: Due to DJD negatives Problems reviewed: Yes Code(s): M48.00 - SPINAL STENOSIS, SITE UNSPECIFIED (3) Atrial fibrillation Assessment/Plan: Status post watchman device, not on anticoagulation continue home medications. Problems reviewed: Yes Code(s): I48.91 - UNSPECIFIED ATRIAL FIBRILLATION (4) TAHIRA (acute kidney injury) Assessment/Plan: Improved on IV hydration. Problems reviewed: Yes Code(s): N17.9 - ACUTE KIDNEY FAILURE, UNSPECIFIED (5) Hyperlipidemia Assessment/Plan: Continue statin Problems reviewed: Yes Code(s): E78.5 - HYPERLIPIDEMIA, UNSPECIFIED (6) Hypertension Assessment/Plan: Well-controlled on current medications. Problems reviewed: Yes Code(s): I10 - ESSENTIAL (PRIMARY) HYPERTENSION (7) Carcinoma of colon metastatic to liver Assessment/Plan: Patient has history of CA colon with metastasis , completed chemotherapy 2 weeks ago at present not on any chemotherapy or radiation therapy will follow-up with oncologist as an outpatient. Problems reviewed: Yes Code(s): C18.9 - MALIGNANT NEOPLASM OF COLON, UNSPECIFIED; C78.7 - SECONDARY MALIG NEOPLASM OF LIVER AND INTRAHEPATIC BILE DUCT
[2020-01-02] MEDS ORDERED: DEXTROSE 5%-WATER - 50 ML IVPB ONE (09:58)
[2020-01-02] MEDS ORDERED: cefTRIAXone SODIUM 1 GM VIAL ONE (09:58)
[2020-01-02] MEDS: CEFTRIAXONE 1 GM in DEXTROSE 5%-WATER - 50 ML IVPB SCH (10:02)
[2020-01-02] MEDS: metoPROLOL SUCCINATE 25 MG TAB.SR.24H (FP) PO SCH ×2 (10:02→21:32)
[2020-01-02] MEDS: CYCLOBENZAPRINE HCL 10 MG TABLET (FP) PO PRN (10:02)
[2020-01-02] MEDS: LIDOCAINE 5% TOPICAL PATCH TP SCH (10:03)
[2020-01-02 10:04] LABS: ANISOCYTOSIS 1+; MACROCYTOSIS 1+; PLATELET ESTIMATE NORMAL
[2020-01-02] MEDS: SODIUM CHLORIDE 0.45% 1,000 ML IV SCH (14:33)
--- NOTE | 2020-01-02 15:17 | PN ---
Progress Note, Physician History of Present Illness: Pt seen and examined at bedside. She is awake and alert. She denies shortness of breath. - Current Medication List Current Medications: Active Medications Atorvastatin Calcium (Lipitor -) 10 mg PO HS [facility] Last Admin: 01/01/20 21:01 Dose: 10 mg Documented by: Cyclobenzaprine HCl (Flexeril -) 5 mg PO TID PRN PRN Reason: BACK PAIN Last Admin: 01/02/20 10:02 Dose: 5 mg Documented by: Dexamethasone 4 mg/ (Dexamethasone 1 mg) 5 mg PO TID TRACY Gabapentin (Neurontin -) 100 mg PO TID [facility] Last Admin: 01/02/20 14:33 Dose: 100 mg Documented by: Heparin Sodium (Porcine) (Heparin -) 5,000 unit SQ TID [facility] Last Admin: 01/02/20 14:32 Dose: 5,000 unit Documented by: Ceftriaxone Sodium 1 gm/ (Dextrose) 50 mls @ 100 mls/hr IVPB DAILY [facility] Last Admin: 01/02/20 10:02 Dose: 100 mls/hr Documented by: Sodium Chloride (1/2 Normal Saline) 1,000 mls @ 42 mls/hr IV ASDIR [facility] Last Admin: 01/02/20 14:33 Dose: 42 mls/hr Documented by: Lidocaine (Lidoderm Patch -) 1 patch TP DAILY [facility] Last Admin: 01/02/20 10:03 Dose: 1 patch Documented by: Metoprolol Succinate (Toprol Xl -) 25 mg PO BID [facility] Last Admin: 01/02/20 10:02 Dose: 25 mg Documented by: Miscellaneous (Lidoderm Patch Removal) 1 each MC DAILY@2200 [facility] Last Admin: 01/01/20 21:01 Dose: Not Given Documented by: Morphine Sulfate (Morphine Sulfate) 1 mg IVPUSH Q4H PRN PRN Reason: PAIN LEVEL 6-10 Last Admin: 01/02/20 05:49 Dose: 1 mg Documented by: - Objective Vital Signs: Vital Signs Temperature 98.4 F 01/02/20 12:00 Pulse Rate 53 L 01/02/20 12:00 Respiratory Rate 18 01/02/20 12:00 Blood Pressure 137/59 L 01/02/20 12:00 O2 Sat by Pulse Oximetry (%) 92 L 01/02/20 06:18 Constitutional: Yes: Calm Eyes: Yes: Conjunctiva Clear HENT: Yes: Atraumatic Neck: Yes: Supple Cardiovascular: Yes: S1, S2 Respiratory: Yes: CTA Bilaterally Gastrointestinal: Yes: Normal Bowel Sounds, Soft Genitourinary: Yes: WNL Edema: No Neurological: Yes: Oriented Psychiatric: Yes: Oriented Labs: CBC, BMP 01/02/20 07:28 01/02/20 07:28 INR, PTT INR 1.08 (0.83-1.09) 12/30/19 15:12 Problem List - Problems (1) TAHIRA (acute kidney injury) Code(s): N17.9 - ACUTE KIDNEY FAILURE, UNSPECIFIED Assessment/Plan Current Medications Generic Name Dose Route Start Last Admin Trade Name Freq PRN Reason Stop Dose Admin Atorvastatin Calcium 10 mg 12/31/19 22:00 01/01/20 21:01 Lipitor - PO 10 mg HS TRACY Administration Cyclobenzaprine HCl 5 mg 12/31/19 00:35 01/02/20 10:02 Flexeril - PO 5 mg TID PRN Administration BACK PAIN Dexamethasone 4 mg/ 5 mg 01/02/20 22:00 Dexamethasone 1 mg PO TID TRACY Gabapentin 100 mg 12/31/19 06:00 01/02/20 14:33 Neurontin - PO 100 mg TID TRACY Administration Heparin Sodium (Porcine) 5,000 unit 12/31/19 06:00 01/02/20 14:32 Heparin - SQ 5,000 unit TID TRACY Administration Ceftriaxone Sodium 1 gm/ 50 mls @ 100 mls/hr 12/31/19 10:00 01/02/20 10:02 Dextrose IVPB 100 mls/hr DAILY TRACY Administration Sodium Chloride 1,000 mls @ 42 mls/hr 01/01/20 14:45 01/02/20 14:33 1/2 Normal Saline IV 42 mls/hr ASDIR TRACY Administration Lidocaine 1 patch 12/31/19 10:00 01/02/20 10:03 Lidoderm Patch - TP 1 patch DAILY TRACY Administration Metoprolol Succinate 25 mg 12/31/19 11:45 01/02/20 10:02 Toprol Xl - PO 25 mg BID TRACY Administration Miscellaneous 1 each 12/31/19 22:00 01/01/20 21:01 Lidoderm Patch Removal MC Not Given DAILY@2200 TRACY Morphine Sulfate 1 mg 12/31/19 00:19 01/02/20 05:49 Morphine Sulfate IVPUSH 1 mg Q4H PRN Administration PAIN LEVEL 6-10 Impression 1. TAHIRA 2. hyperkalemia 3. back pain 4. uti 5. hx breast cancer 6. hld 7. colon cancer 8. renal cysts 9. hypernatremia Plan - d/c 05/25 ns - will start d5w - encourage po water intake - renal funcito is improved - repeat labs in am - cont abx - monitor urine output, no signs of polyuria
[2020-01-02] MEDS ORDERED: DEXTROSE 5%-WATER - 1,000 ML IV SCH (15:30)
[2020-01-02] MEDS: LOSARTAN POTASSIUM 25 MG TABLET PO SCH (17:30)
[2020-01-02] MEDS ORDERED: DEXAMETHASONE 4 MG TABLET (FP) PO SCH (18:00)
[2020-01-02] MEDS ORDERED: PT OWN MED DRAWER 7, Y5N ONE (21:27)
[2020-01-02] MEDS: DEXAMETHASONE PO SCH (21:29)
[2020-01-02] MEDS: LIDOCAINE PATCH REMOVAL MC SCH (21:30)
[2020-01-02] MEDS ORDERED: ATORVASTATIN CA 40 MG TABLET (FP) PO SCH (22:00)
[2020-01-02] MEDS ORDERED: DEXAMETHASONE SOD PHOSPHATE 4 MG/1 ML VIAL IVPUSH SCH (22:00)
[2020-01-03] MEDS: DEXAMETHASONE PO SCH ×2 (06:13→13:32)
[2020-01-03] MEDS: CYCLOBENZAPRINE HCL 10 MG TABLET (FP) PO PRN (06:14)
[2020-01-03] MEDS: HEPARIN NA (PORCINE) 5,000 UNITS/ML 1ML VIAL SQ SCH ×2 (06:14→13:05)
[2020-01-03] MEDS: GABAPENTIN 100 MG CAPSULE PO SCH ×2 (06:14→13:06)
[2020-01-03 07:58] LABS: BASO % 0.1 % (0-2.0); HEMATOCRIT 31.1 % (32.4-45.2); HEMOGLOBIN 10.3 GM/dL (10.7-15.3); LYMPH % 4.6 % (8-40); MCH 32.7 pg (25.7-33.7); MCHC 33.1 g/dl (32.0-36.0); MEAN CELL VOLUME 98.8 fl (80-96); MEAN PLT VOLUME 9.3 fl (7.5-11.1); MONO % 4.2 % (3.8-10.2); NEUT % 91.1 % (42.8-82.8); PLATELET COUNT 293 K/MM3 (134-434); RBC 3.15 M/mm3 (3.60-5.2); RDW 15.4 % (11.6-15.6); WHITE BLOOD COUNT 7.9 K/mm3 (4.0-10.0)
[2020-01-03 08:25] LABS: ALBUMIN 2.5 g/dl (3.4-5.0); BILIRUBIN,TOTAL 1.1 mg/dL (0.2-1); CALCIUM 8.3 mg/dL (8.5-10.1); CREATININE 0.9 mg/dL (0.55-1.3); MAGNESIUM 2.3 mg/dL (1.8-2.4); POTASSIUM 4.2 mmol/L (3.5-5.1); TOT PROT 5.5 g/dl (6.4-8.2)
--- NOTE | 2020-01-03 09:12 | DS ---
Physical Examination Vital Signs: Vital Signs Temperature 97.1 F L 01/03/20 06:53 Pulse Rate 43 L 01/03/20 06:53 Respiratory Rate 20 01/03/20 06:53 Blood Pressure 162/68 01/03/20 06:53 O2 Sat by Pulse Oximetry (%) 96 01/03/20 06:53 General: Elderly f, comfortable, not in distress HEENT mucous membranes moist, no anemia, no jaundice, PERRLA, no nystagmus Neck: No JVD, supple, no bruit, thyroid palpably normal, normal carotid pulsations. Chest: Nontender, clear to auscultation bilaterally CVS: S1-S2 irregular no murmur/gallop/rub Abdomen: Nondistended, soft, bowel sounds present. Extremities: No edema., No Calf tenderness, pulses present SPOOL MAKER: AO X3 , no gross motor sensory deficit Labs: CBC, BMP 01/03/20 07:15 01/03/20 07:15 Discharge Summary Problems reviewed: Yes Reason For Visit: BACK PAIN/ACUTE KIDNEY INJURY/UTI/INTRACTABLE PAIN Current Active Problems TAHIRA (acute kidney injury) (Acute) Atrial fibrillation (Acute) Carcinoma of colon metastatic to liver (Acute) Central stenosis of spinal canal (Acute) DVT prophylaxis (Acute) Hyperlipidemia (Acute) Hypertension (Acute) Intractable back pain (Acute) Intractable pain (Acute) UTI (urinary tract infection) (Acute) Hospital Course: 84 year old woman with a significant past medical history of CVA, HTN, Afib (Watchman device in place) not on A/C, breast cancer (lumpectomy 12 years ago) and colon carcinoma with hepatic mets completed chemotherapy, follow-up with oncologist at present no chemotherapy or radiation therapy is planned ,onco logist follow-up as an outpatient, patient was admitted on December 30, 2019 with 3 days history of worsening back pain underwent CT scan and MRI that shows no compression, evaluated by neurosurgery recommended pain control and rehabilitation, today patient was able to participate in PT is being transferred for rehabilitation placement at [place].patient was evaluated by orthopedics and neurosurgery after imaging CT LS spine- No acute fx, multilevel spondylosis and facet hypertrophy; Moderate B L3-4 lateral recess stenosis, MRI LS spine- no clear pathological lumbar fx; B L3-4 and L4-5 facet hypertrophy and moderate lateral recess stenosis bilaterally; no significant central canal stenosis; edema R sacral ala, Bone scan- R sacral alar uptake c/w fx, neurosurgery recommended no intervention switch to p.o. dexamethasone and taper over 1 week, please see dexamethasone tapering protocol, patient had episode of asymptomatic bradycardia so metoprolol was adjusted to 25 mg daily, amlodipine 5 mg added to the regimen, urine culture grew pansensitive Klebsiella pneumonia initially r eceived ceftriaxone now switched to Ceftin 5 mg twice daily for 5 more days. Condition: Stable - Instructions Diet, Activity, Other Instructions: Low-salt low-cholesterol Patient is mildly elevated BUN most likely secondary to the steroid use follow- up BMP after 2 days Patient has bradycardia the dose of metoprolol is adjusted to 12.5 mg monitor heart rate Amlodipine 5 mg added to optimize BP control Referrals: Jayashree Klein [Non Staff, Medical] - 2 Weeks Disposition: INTERMEDIATE FACILITY - Home Medications Comprehensive Discharge Medication List: Ambulatory Orders Aspirin 81 mg PO DAILY 12/30/19 Atorvastatin Ca [Lipitor] 40 mg PO HS 12/30/19 Calcium Carbonate 500 mg PO BID 12/30/19 Cholecalciferol (Vitamin D3) [Vitamin D3] 2,000 unit PO DAILY 12/30/19 Folic Acid 1 mg PO DAILY 12/30/19 Hydrochlorothiazide [Hctz -] 25 mg PO DAILY 12/30/19 Losartan Potassium 25 mg PO DAILY 12/30/19 Metoprolol Succinate 25 mg PO DAILY 12/30/19 Pantoprazole Sodium 40 mg PO DAILY 12/30/19 Cyclobenzaprine HCl [Flexeril -] 5 mg PO TID PRN tablet 01/03/20 Dexamethasone [Decadron -] 5 mg PO TID tablet 01/03/20 Gabapentin [Neurontin -] 100 mg PO TID capsule 01/03/20 Heparin - 5,000 unit SQ TID vial 01/03/20 Lidocaine 5% Patch [Lidoderm -] 1 patch TP DAILY patch 01/03/20 Lidocaine Patch Removal [Lidoderm Patch Removal] 1 each MC DAILY@2200 each 01/03/20 Amlodipine 5 mg daily Ceftin 5 mg twice daily for 10 days Prescription Drug Monitoring Program (I-STOP) results: I-STOP reviewed and no issues identified
[2020-01-03] MEDS ORDERED: cefTRIAXone SODIUM 1 GM VIAL ONE (09:49)
[2020-01-03] MEDS ORDERED: DEXTROSE 5%-WATER - 50 ML IVPB ONE (09:49)
[2020-01-03] MEDS ORDERED: HYDROCHLOROTHIAZIDE 25 MG TABLET (FP) PO SCH (10:00)
[2020-01-03] MEDS ORDERED: PANTOPRAZOLE 40 MG TABLET PO SCH (10:00)
[2020-01-03] MEDS ORDERED: ASPIRIN 81 MG CHEWABLE TABLETS PO SCH (10:00)
[2020-01-03] MEDS ORDERED: FOLIC ACID 1 MG TABLET (FP) PO SCH (10:00)
[2020-01-03 10:01] VITALS: TEMP 98
[2020-01-03] MEDS: LOSARTAN POTASSIUM 25 MG TABLET PO SCH (10:03)
[2020-01-03] MEDS: CEFTRIAXONE 1 GM in DEXTROSE 5%-WATER - 50 ML IVPB SCH (10:03)
[2020-01-03] MEDS: metoPROLOL SUCCINATE 25 MG TAB.SR.24H (FP) PO SCH (10:03)
[2020-01-03] MEDS: LIDOCAINE 5% TOPICAL PATCH TP SCH (10:03)
[2020-01-03 11:12] LABS: ANISOCYTOSIS 1+; PLATELET ESTIMATE NORMAL
--- NOTE | 2020-01-03 12:13 | PN ---
Progress Note, Physician History of Present Illness: Pt seen and examined. SHe denies shortness of breath. - Current Medication List Current Medications: Active Medications Aspirin (Asa -) 81 mg PO DAILY [facility] Last Admin: 01/03/20 10:03 Dose: 81 mg Documented by: Atorvastatin Calcium (Lipitor -) 40 mg PO HS [facility] Last Admin: 01/02/20 21:30 Dose: 40 mg Documented by: Cyclobenzaprine HCl (Flexeril -) 5 mg PO TID PRN PRN Reason: BACK PAIN Last Admin: 01/03/20 06:14 Dose: 5 mg Documented by: Dexamethasone 4 mg/ (Dexamethasone 1 mg) 5 mg PO TID [facility] Last Admin: 01/03/20 06:13 Dose: 5 mg Documented by: Folic Acid (Folic Acid -) 1 mg PO DAILY [facility] Last Admin: 01/03/20 10:03 Dose: 1 mg Documented by: Gabapentin (Neurontin -) 100 mg PO TID [facility] Last Admin: 01/03/20 06:14 Dose: 100 mg Documented by: Heparin Sodium (Porcine) (Heparin -) 5,000 unit SQ TID [facility] Last Admin: 01/03/20 06:14 Dose: 5,000 unit Documented by: Hydrochlorothiazide (Hctz -) 25 mg PO DAILY [facility] Last Admin: 01/03/20 10:03 Dose: 25 mg Documented by: Ceftriaxone Sodium 1 gm/ (Dextrose) 50 mls @ 100 mls/hr IVPB DAILY [facility] Last Admin: 01/03/20 10:03 Dose: 100 mls/hr Documented by: Lidocaine (Lidoderm Patch -) 1 patch TP DAILY [facility] Last Admin: 01/03/20 10:03 Dose: 1 patch Documented by: Losartan Potassium (Cozaar -) 25 mg PO DAILY [facility] Last Admin: 01/03/20 10:03 Dose: 25 mg Documented by: Metoprolol Succinate (Toprol Xl -) 25 mg PO BID [facility] Last Admin: 01/03/20 10:03 Dose: Not Given Documented by: Miscellaneous (Lidoderm Patch Removal) 1 each MC DAILY@2200 [facility] Last Admin: 01/02/20 21:30 Dose: Not Given Documented by: Morphine Sulfate (Morphine Sulfate) 1 mg IVPUSH Q4H PRN PRN Reason: PAIN LEVEL 6-10 Last Admin: 01/02/20 05:49 Dose: 1 mg Documented by: Pantoprazole Sodium (Protonix -) 40 mg PO DAILY [facility] Last Admin: 01/03/20 10:03 Dose: 40 mg Documented by: - Objective Vital Signs: Vital Signs Temperature 98 F 01/03/20 10:00 Pulse Rate 62 01/03/20 12:01 Respiratory Rate 18 01/03/20 10:00 Blood Pressure 175/70 H 01/03/20 12:01 O2 Sat by Pulse Oximetry (%) 96 01/03/20 06:53 Constitutional: Yes: Calm Eyes: Yes: Conjunctiva Clear HENT: Yes: Atraumatic Cardiovascular: Yes: S1, S2 Respiratory: Yes: CTA Bilaterally Gastrointestinal: Yes: Normal Bowel Sounds, Soft Genitourinary: Yes: WNL Edema: No Neurological: Yes: Oriented Labs: CBC, BMP 01/03/20 07:15 01/03/20 07:15 INR, PTT INR 1.08 (0.83-1.09) 12/30/19 15:12 Problem List - Problems (1) TAHIRA (acute kidney injury) Code(s): N17.9 - ACUTE KIDNEY FAILURE, UNSPECIFIED Assessment/Plan Current Medications Generic Name Dose Route Start Last Admin Trade Name Freq PRN Reason Stop Dose Admin Aspirin 81 mg 01/03/20 10:00 01/03/20 10:03 Asa - PO 81 mg DAILY [facility] Administration Atorvastatin Calcium 40 mg 01/02/20 22:00 01/02/20 21:30 Lipitor - PO 40 mg HS [facility] Administration Cyclobenzaprine HCl 5 mg 12/31/19 00:35 01/03/20 06:14 Flexeril - PO 5 mg TID PRN Administration BACK PAIN Dexamethasone 4 mg/ 5 mg 01/02/20 22:00 01/03/20 06:13 Dexamethasone 1 mg PO 5 mg TID [facility] Administration Folic Acid 1 mg 01/03/20 10:00 01/03/20 10:03 Folic Acid - PO 1 mg DAILY [facility] Administration Gabapentin 100 mg 12/31/19 06:00 01/03/20 06:14 Neurontin - PO 100 mg TID [facility] Administration Heparin Sodium (Porcine) 5,000 unit 12/31/19 06:00 01/03/20 06:14 Heparin - SQ 5,000 unit TID [facility] Administration Hydrochlorothiazide 25 mg 01/03/20 10:00 01/03/20 10:03 Hctz - PO 25 mg DAILY [facility] Administration Ceftriaxone Sodium 1 gm/ 50 mls @ 100 mls/hr 12/31/19 10:00 01/03/20 10:03 Dextrose IVPB 100 mls/hr DAILY [facility] Administration Lidocaine 1 patch 12/31/19 10:00 01/03/20 10:03 Lidoderm Patch - TP 1 patch DAILY [facility] Administration Losartan Potassium 25 mg 01/02/20 16:45 01/03/20 10:03 Cozaar - PO 25 mg DAILY [facility] Administration Metoprolol Succinate 25 mg 12/31/19 11:45 01/03/20 10:03 Toprol Xl - PO Not Given BID [facility] Miscellaneous 1 each 12/31/19 22:00 01/02/20 21:30 Lidoderm Patch Removal MC Not Given DAILY@2200 [facility] Morphine Sulfate 1 mg 12/31/19 00:19 01/02/20 05:49 Morphine Sulfate IVPUSH 1 mg Q4H PRN Administration PAIN LEVEL 6-10 Pantoprazole Sodium 40 mg 01/03/20 10:00 01/03/20 10:03 Protonix - PO 40 mg DAILY [facility] Administration Impression 1. TAHIRA 2. hyperkalemia 3. back pain 4. uti 5. hx breast cancer 6. hld 7. colon cancer 8. renal cysts 9. hypernatremia Plan - renal function improved - pt tolerating diet - sodium improved - can see out outpt - abx per medical team
[2020-01-03] MEDS ORDERED: amLODIPine BESYLATE 5 MG TABLET (FP) PO SCH (12:45)
[2020-01-03] MEDS ORDERED: CEFUROXIME AXETIL 500 MG TABLET PO SCH (13:00)
[2020-01-03 13:28] VITALS: BP 125/78; PULSE 54
[2020-01-03] MEDS ORDERED: PT OWN MED DRAWER 7, Y5N ONE (13:29)
[2020-01-04] MEDS ORDERED: metoPROLOL SUCCINATE 25 MG TAB.SR.24H (FP) PO SCH (10:00)
== END 2020-01-03 13:46 | DRG 552 ==
LOC: JER 13:05 → JERBED 20:58 → J8W 22:36
PROVIDERS: ADMIT Internal Medicine; ATTEND Internal Medicine
DX: M48.061 Spinal stenosis, lumbar region without neurogenic claudication (principal); N17.9 Acute kidney failure, unspecified; C18.9 Malignant neoplasm of colon, unspecified; C78.7 Secondary malignant neoplasm of liver and intrahepatic bile duct; E46 Unspecified protein-calorie malnutrition; N39.0 Urinary tract infection, site not specified; M80.851A Other osteoporosis with current pathological fracture, right femur, initial encounter for fracture; E87.0 Hyperosmolality and hypernatremia; I48.91 Unspecified atrial fibrillation; E87.5 Hyperkalemia; E78.5 Hyperlipidemia, unspecified; M54.9 Dorsalgia, unspecified; N28.1 Cyst of kidney, acquired; I10 Essential (primary) hypertension; Z68.23 Body mass index [BMI] 23.0-23.9, adult; E86.0 Dehydration; B96.20 Unspecified Escherichia coli [E. coli] as the cause of diseases classified elsewhere; M51.37 Other intervertebral disc degeneration, lumbosacral region; R33.9 Retention of urine, unspecified; M81.8 Other osteoporosis without current pathological fracture; R60.9 Edema, unspecified; R00.1 Bradycardia, unspecified; Z85.3 Personal history of malignant neoplasm of breast
CPT/HCPCS: 36415; 72128-TC; 72131-TC; 72148-TC; 76775-TC; 78306-TC; 80053; 81003; 83690; 83735; 84100; 84484; 85025; 85027; 85610; 85730; 86140; 86850; 86900; 86901; 87086; 87186; 93005; 93010; 97116-GP; 97161-GP; 99285-25; A9503; J1100; J1644; J8540; U0003